=== PATIENT | female | born 1955 | race Caucasian/White ===

== ENCOUNTER → 2017-05-18 | Outpatient (CLI) | payer OTHER ==
[~2017-05-18] MED LIST: CLIN35GE3 TP; GABA300C10 PO; HYDR25TA6 PO; IBUP200C8 PO; LEVO137T3 PO; OMEP-110 PO; OXYC5CAP2 PO; TRAM50TA2 PO
[2017-05-18 16:44] LABS: HEMATOCRIT 41.2 % (34.6-47.8); HEMOGLOBIN 13.2 g/dL (11.7-16.4); WHITE BLOOD COUNT 5.8 x10^3/uL (3.4-10)
[2017-05-18 16:56] LABS: ASPARTATE AMINO TRANSFERASE 9 U/L (15-37); BLOOD UREA NITROGEN 9 mg/dL (7-18)
== END | disposition home or self-care (01) ==
LOC: STAR 15:44
PROVIDERS: ATTEND Orthopaedic Surgery
DX: Z01.818 Encounter for other preprocedural examination (principal); R94.31 Abnormal electrocardiogram [ECG] [EKG]; M17.12 Unilateral primary osteoarthritis, left knee; K21.9 Gastro-esophageal reflux disease without esophagitis
CPT/HCPCS: 36415; 80053; 81003; 85025; 87081; 87147; 93005

== ENCOUNTER 2017-05-31 06:11 | Inpatient (IN) | payer OTHER ==
[~2017-05-31] VITALS: Ht 170.2 cm; Wt 107.0 kg
[2017-05-31] MEDS ORDERED: cloniDINE/PF 100 MCG/ML, 10 ML ONE (06:29)
[2017-05-31] MEDS ORDERED: PROPOFOL 50 ML ONE (06:35)
[2017-05-31] MEDS ORDERED: MIDAZOLAM 1 MG/ML, 2ML ONE (06:35)
[2017-05-31] MEDS ORDERED: FENTANYL PF 100 MCG/2ML ONE (06:35)
[2017-05-31] MEDS ORDERED: LIDOCAINE-MPF 2% ,5ML ONE (06:36)
[2017-05-31] MEDS ORDERED: TRANEXAMIC ACID 100 MG/ML, 10ML ONE (06:37)
[2017-05-31] MEDS ORDERED: KETOROLAC 60 MG/2 ML ONE (06:37)
[2017-05-31] MEDS ORDERED: EPINEPHRINE 1 MG/ML, 1ML ONE (06:38)
[2017-05-31] MEDS ORDERED: SODIUM CHLORIDE 0.9% 100 ML ONE (06:38)
[2017-05-31] MEDS ORDERED: ROPIvacaine/PF 0.2%, 20 ML ONE (06:38)
[2017-05-31] MEDS ORDERED: DEXAMETHASONE 4 MG/ML, 1ML ONE ×2 (06:40→07:51)
[2017-05-31] MEDS ORDERED: ONDANSETRON 2MG/ML, 2ML ONE (06:40)
[2017-05-31] MEDS ORDERED: PROPOFOL 10 MG/ML, 20ML ONE (06:40)
[2017-05-31] MEDS ORDERED: CEFAZOLIN 1,000 MG ONE (06:40)
[2017-05-31] MEDS ORDERED: BUPIVACAINE/PF 0.25% ONE (06:42)
[2017-05-31] MEDS ORDERED: SCOPOLAMINE PATCH, 1.5MG PATCH.TD72 TD ONE (07:07)
[2017-05-31] MEDS ORDERED: ALBUTEROL/IPRATROPIUM 2.5MG/0.5MG, 3 ML NPPB PRN (08:00)
[2017-05-31] MEDS ORDERED: MEPERIDINE/PF 25MG/0.5ML IVPush PRN (08:00)
[2017-05-31] MEDS ORDERED: PROMETHAZINE 25 MG/ML, 1ML IV PRN (08:00)
[2017-05-31] MEDS ORDERED: LORazepam 2 MG/ML, 1ML IVPush PRN (08:00)
[2017-05-31] MEDS ORDERED: LABETALOL 5MG/ML, 20ML IV PRN (08:00)
[2017-05-31] MEDS ORDERED: FENTANYL PF 100 MCG/2ML IV PRN (08:00)
[2017-05-31] MEDS ORDERED: MIDAZOLAM 1 MG/ML, 2ML IV PRN (08:00)
[2017-05-31] MEDS ORDERED: DIAZEPAM 5 MG/ML, 2ML IVPush PRN (08:00)
[2017-05-31] MEDS ORDERED: OXYcodone 5 MG/5 ML ORAL.SOL UDC PO PRN (08:00)
[2017-05-31] MEDS ORDERED: hydrALAzine 20 MG/ML, 1ML IV PRN (08:00)
[2017-05-31] MEDS ORDERED: KETOROLAC 30 MG/1 ML IV PRN (08:00)
[2017-05-31] MEDS ORDERED: GABAPENTIN 300 MG CAPSULE PO SCH (08:00)
[2017-05-31] MEDS ORDERED: ACETAMINOPHEN 325 MG TABLET PO PRN (08:00)
[2017-05-31] MEDS ORDERED: ONDANSETRON 2MG/ML, 2ML IVPush PRN (08:00)
[2017-05-31] MEDS ORDERED: HYDROmorphone 1 MG/ML, 1ML IV PRN ×2 (08:00→09:30)
[2017-05-31] MEDS ORDERED: EPHEDRINE 50 MG/ML, 1ML ONE (08:45)
[2017-05-31] MEDS ORDERED: ACETAMINOPHEN 325 MG TABLET ONE (09:21)
[2017-05-31] MEDS ORDERED: ACETAMINOPHEN 650 MG/20.3 ML UDC ONE (09:21)
[2017-05-31] MEDS ORDERED: OXYcodone 5 MG/5 ML ORAL.SOL UDC ONE (09:21)
[2017-05-31] MEDS ORDERED: PROMETHAZINE 25 MG/ML, 1ML IM PRN (09:30)
[2017-05-31] MEDS ORDERED: DIAZEPAM 5 MG TABLET PO PRN (09:30)
[2017-05-31] MEDS ORDERED: MAGNESIUM HYDROXIDE 8%, 30ML UDC PO PRN (09:30)
[2017-05-31] MEDS ORDERED: LORazepam 1MG TABLET PO PRN (09:30)
[2017-05-31] MEDS ORDERED: DIPHENHYDRAMINE 25 MG CAPSULE PO PRN (09:30)
[2017-05-31] MEDS ORDERED: ONDANSETRON 4 MG TABLET PO PRN (09:30)
[2017-05-31] MEDS ORDERED: SCOPOLAMINE PATCH, 1.5MG PATCH.TD72 TD PRN (09:30)
[2017-05-31] MEDS ORDERED: ONDANSETRON 2MG/ML, 2ML IV PRN (09:30)
[2017-05-31] MEDS ORDERED: PROMETHAZINE 12.5 MG SUPP PR PRN (09:30)
[2017-05-31] MEDS ORDERED: TRANEXAMIC ACID 1,000 MG in SODIUM CHLORIDE 0.9% 100 ML IVPB ONE (09:30)
[2017-05-31] MEDS ORDERED: ALUMINUM/MAG/SIMETHICONE 30 ML UDC PO PRN (09:30)
[2017-05-31] MEDS ORDERED: BISACODYL 10 MG SUPP PR PRN (09:30)
[2017-05-31] MEDS: ACETAMINOPHEN 650 MG/20.3 ML UDC PO SCH ×2 (11:00→18:30)
[2017-05-31 11:09] VITALS: BP 108/54
[2017-05-31] MEDS: SODIUM CHLORIDE 0.9% 1,000 ML IV SCH ×2 (12:27→23:00)
[2017-05-31] MEDS: TAMSULOSIN 0.4 MG CAP.ER.24H PO SCH (12:27)
[2017-05-31] MEDS: HYDROmorphone 2MG TABLET PO PRN ×3 (14:16→23:12)
[2017-05-31] MEDS: CEFAZOLIN PMX 2GM/50ML 50 ML IVPB SCH ×2 (14:16→23:08)
[2017-05-31 14:18] VITALS: BP 122/82
[2017-05-31] MEDS: ASPIRIN 81 MG TABLET EC PO SCH (18:25)
[2017-05-31 20:55] VITALS: BP 108/56
[2017-05-31] MEDS: DOCUSATE 100 MG CAPSULE PO SCH (21:47)
[2017-06-01 00:32] VITALS: BP 97/53
[2017-06-01] MEDS: ACETAMINOPHEN 650 MG/20.3 ML UDC PO SCH ×2 (03:23→11:35)
[2017-06-01 04:40] VITALS: BP 100/65
[2017-06-01 05:47] LABS: BLOOD UREA NITROGEN 7 mg/dL (7-18)
[2017-06-01] MEDS ORDERED: DEXAMETHASONE 4 MG/ML, 1ML IVPush SCH (06:00)
[2017-06-01] MEDS ORDERED: LEVOTHYROXINE 137 MCG TABLET PO SCH (06:00)
[2017-06-01] MEDS: ASPIRIN 81 MG TABLET EC PO SCH ×2 (06:00→18:10)
[2017-06-01] MEDS: HYDROmorphone 2MG TABLET PO PRN ×3 (06:16→18:10)
[2017-06-01] MEDS: SODIUM CHLORIDE 0.9% 1,000 ML IV SCH ×2 (07:28→16:07)
[2017-06-01] MEDS ORDERED: OMEPRAZOLE 20 MG CAPSULE.DR PO SCH (07:30)
[2017-06-01] MEDS: TAMSULOSIN 0.4 MG CAP.ER.24H PO SCH (08:16)
[2017-06-01] MEDS: DOCUSATE 100 MG CAPSULE PO SCH (08:16)
[2017-06-01] MEDS: KETOROLAC 30 MG/1 ML IV SCH ×2 (08:16→16:08)
[2017-06-01 08:34] VITALS: BP 124/69
[2017-06-01 13:57] VITALS: BP 129/63
== END 2017-06-01 18:46 | disposition home or self-care (01) | DRG 470 ==
LOC: ORIP 06:11 → 4NOR 10:45 → UNDODISIN 06-01 18:12
PROVIDERS: ADMIT Orthopaedic Surgery; ATTEND Orthopaedic Surgery
PROC: 0SRD0J9 Replacement of Left Knee Joint with Synthetic Substitute, Cemented, Open Approach (ICD-10-PCS; principal; 2017-05-31 07:30)
DX: M17.12 Unilateral primary osteoarthritis, left knee (principal); E03.9 Hypothyroidism, unspecified; I10 Essential (primary) hypertension; K21.9 Gastro-esophageal reflux disease without esophagitis
CPT/HCPCS: 36415; 80048; 82040; 85018; C1713; J0171; J0690; J1100; J1885; J2250; J2405; J2704; J2795; J3010; J3490; C1776; J0735; J7030